=== PATIENT | female | born 1950 | race Caucasian/White ===

== ENCOUNTER 2017-01-08 13:28 | Emergency (ER) | payer MEDICARE ==
[~2017-01-08] VITALS: Ht 162.6 cm; Wt 79.5 kg
[2017-01-08 13:41] VITALS: BP 159/96; PULSE 98; RESP 20; O2SAT 97
--- NOTE | 2017-01-08 16:16 | ED.REPORT ---
HPI-Eye Problem Date of Service Jan 08, 2017 ED Provider: Doc,Ed MD History of Present Illness: started over 2 weeks ago had cataract surgery last fall, dx with dry eyes. called eye md at [facility] in [place]. appointment is 01/14/2017 light sensitive right eye is the eye that is affected. primary care martinez. Uses eye drops nightly for dry eyes Nursing Notes Stated Complaint: LIGHT SENSITIVITY, SWOLLEN LEFT EYE Chief Complaint: Eye Nursing Notes Reviewed: Yes Allergies: Coded Allergies: Cephalosporins (Verified Allergy, Unknown, RASH, 01/08/17) Sulfa (Sulfonamide Antibiotics) (Verified Allergy, Unknown, 01/08/17) General Time Seen by MD: 16:15 Chief Complaint Right eye affected Hx Obtained From: Patient Sudden in Onset?: No Location: : Eye right Past Medical History Past Medical History Denies: Asthma, Diabetes mellitus Past Surgical History cartaract surgey 08/2016, lipoma removed Smoking History Never Smoker Social History Alcohol Use: Denies alcohol use Drug Use: Denies drug use Occupation , lives with son, no work or school 01/08/2017 Ambulatory Status Independent Review of Systems Basic Review of Systems Respiratory: No shortness of breath, No cough, No wheeze : No dysuria, No frequency Psychiatric: Normal thought content Physical Exam Initial Vital Signs Vital Signs (First) Date Time Temp Pulse Resp B/P Pulse Ox O2 Delivery O2 Flow Rate FiO2 01/08/17 13:41 36.9 98 20 159/96 97 Room Air Initial VS: Reviewed, Vital signs normal General / Const: Well-developed, Well-nourished ENT: Mucous membranes moist, Conjunctiva normal, No scleral icterus Neck: Supple, Non-tender, Full range of motion Respiratory: Breath sounds normal, Clear to auscultation, No respiratory distress Cardiovascular: Regular rate & rhythm, Heart sounds normal, Intact distal pulses Abdomen / GI: Soft, Non-tender, No guarding, No rebound, No distention Back: No CVA tenderness Lymphatic: No lymphadenopathy Extremities: Vascular intact, Neuro intact, No swelling, No tenderness Skin: Warm, Dry, No cyanosis Neurologic: Alert, Oriented, Nonfocal Psychiatric: Mood/affect normal, Behavior normal, Normal thought content Cornea/Anterior Chamber: Positive: Fluorescein uptake R... (Punctate) pressure is at 19. EOM's are intact, visual exam indicates mild erthyma at the medial canthus with mild injection on the medial aspect of the eye. Small punctate abrasion on the right cornea at 4 o'clock. No sign of foreign body General/Constitutional: Awake, Alert, No acute distress, Well appearing, Well developed, Well hydrated, Well nourished, Cooperative, Not toxic appearing Respiratory / Chest: Atraumatic, Breath sounds NL, Breath sounds = bilat, No respiratory distress Cardiovascular: Heart rate NL, Regular rhythm, Heart sounds NL, No gallop Re-Eval/Medical Decision Med Decision/Clinical Course 66 year old female presents for evualation of right eye sensitivity for 2 weeks. Patient states recent dx of dry eyes and uses drops daily for the dry eyes. Flourscein staining shows punctate abrasion on the right at 4 o'clock. Pressure is at 19. No sign of any stye formation or glaucoma Discharge & Departure Primary Impression: Corneal abrasion, right Encounter type: initial encounter Qualified Code: S05.01XA - Injury of conjunctiva and corneal abrasion without foreign body, right eye, initial encounter Additional Impression: Dry eyes Disposition: Home Patient Instructions: Corneal Abrasion (ED) Additional Instructions: Exam indicates a small abrasion on your right eye. This may have come from the dry eyes. No sign of a foreign body is identified. This can account for your light sensitivity. Please keep the follow up appointment with them as scheduled. Use erythromycin ointment to the eye 4 times a day for 5 days. Your pressure is good at 19. Can use hydrocodone 1 up to 2 times a day as needed for severe unrelenting pain. Referrals: Natalie Martinez MD (PCP) EDSupervising Provider for APC: Javy Pitt MD copies to: Natalie Martinez MD, Sue ARNP Jan 08, 2017 16:16
[2017-01-08] MEDS ORDERED: 0.9% Sodium Chloride Inhalation Solution ONE (16:35)
[2017-01-08] MEDS ORDERED: Fluorescein 0.6 mg Ophthalmic Strip ONE (16:35)
[2017-01-08] MEDS ORDERED: Tetracaine 0.5% 4 mL Ophthalmic Solution ONE (16:36)
[2017-01-08 17:01] VITALS: BP 131/68; PULSE 72; RESP 17; O2SAT 98
== END 2017-01-08 16:52 | disposition home or self-care (01) ==
LOC: SED 13:28
DX: S05.01XA Injury of conjunctiva and corneal abrasion without foreign body, right eye, initial encounter (principal); Y83.8 Other surgical procedures as the cause of abnormal reaction of the patient, or of later complication, without mention of misadventure at the time of the procedure; Y93.89 Activity, other specified; Y92.89 Other specified places as the place of occurrence of the external cause; Y99.8 Other external cause status; H04.123 Dry eye syndrome of bilateral lacrimal glands; Z98.49 Cataract extraction status, unspecified eye; Z88.1 Allergy status to other antibiotic agents; Z88.2 Allergy status to sulfonamides